=== PATIENT | female | born 1945 | race Caucasian/White ===

== ENCOUNTER 2017-01-05 09:52 | Outpatient (CLI) | payer OTHER | END 2017-01-05 20:45 | disposition home or self-care (01) | LOC: SMA 09:52 | PROVIDERS: ATTEND Internal Medicine | DX: Z12.31 Encounter for screening mammogram for malignant neoplasm of breast (principal) | CPT/HCPCS: G0202 ==

== ENCOUNTER 2017-12-30 09:58 | Outpatient (CLI) | payer OTHER | END 2017-12-30 20:33 | disposition home or self-care (01) | LOC: SMA 09:58 | PROVIDERS: ATTEND Internal Medicine | DX: Z12.31 Encounter for screening mammogram for malignant neoplasm of breast (principal) | CPT/HCPCS: 77067 ==

== ENCOUNTER 2019-01-02 09:47 | Outpatient (CLI) | payer OTHER | END 2019-01-02 21:04 | disposition home or self-care (01) | LOC: SMA 09:47 | PROVIDERS: ATTEND Internal Medicine | DX: Z12.31 Encounter for screening mammogram for malignant neoplasm of breast (principal) | CPT/HCPCS: 77067 ==